=== PATIENT | male | born 1990 | race African-American/Black ===

== ENCOUNTER 2017-11-28 20:24 | Emergency (ER) | payer SELFPAY ==
[2017-11-28 20:25] VITALS: BP 145/77; PULSE 86; RESP 16; TEMP 98.6; O2SAT 98
[2017-11-28] MEDS ORDERED: CEPH-460 PO (21:30)
[2017-11-28] MEDS ORDERED: IBUP1TAB7 PO (21:30)
[2017-11-28] MEDS ORDERED: BACT800T5 PO (21:30)
--- NOTE | 2017-11-28 21:30 | PD ---
HPI Chief Complaint: Skin Problem Time Seen by Provider: 21:17 Travel History International Travel<30 days: No Contact w/Intl Traveler<30days: No Traveled to known affect area: No History of Present Illness HPI 27-year-old male presents to the emergency department for evaluation of a painful lesion on his left buttock. Patient states that he notices about 2 weeks ago. He states is painful to sit on it. Rates the pain a 6 out of 10. He denies any injury. No fever or chills. No drainage. He has no other symptoms to report. PFSH Past Medical History Medical History: Denies Significant Hx Social History Alcohol Use: No Tobacco Use: No Allergies-Medications (Allergen,Severity, Reaction): Coded Allergies: No Known Allergies (Unverified , 11/28/17) Reported Meds & Prescriptions Reported Meds & Active Scripts Active Ibuprofen 800 Mg Tab 800 Mg PO Q8H PRN Keflex (Cephalexin) 500 Mg Cap 500 Mg PO Q6H 5 Days Bactrim DS (Sulfamethoxazole-Trimethoprim) 800-160 Mg Tab 1 Tab PO BID Review of Systems Except as stated in HPI: all other systems reviewed are Neg Physical Exam Narrative GENERAL: Well-nourished, well-developed male patient in no acute distress SKIN: There is an indurated area in the gluteal cleft on the left buttock which measures about 1 cm in diameter. There is no fluctuance, pointing or drainage. There is no significant inflammation. HEAD: Normocephalic. EYES: No scleral icterus. No injection or drainage. NECK: Supple, trachea midline. No JVD or lymphadenopathy. CARDIOVASCULAR: Regular rate and rhythm without murmurs, gallops, or rubs. RESPIRATORY: Breath sounds equal bilaterally. No accessory muscle use. GASTROINTESTINAL: Abdomen soft, non-tender, nondistended. MUSCULOSKELETAL: No cyanosis, or edema. BACK: Nontender without obvious deformity. No CVA tenderness. Data Data Last Documented VS Vital Signs Date Time Temp Pulse Resp B/P (MAP) Pulse Ox O2 Delivery O2 Flow Rate FiO2 11/28/17 21:53 11/28/17 20:25 98.6 86 16 98 Orders Orders Ed Discharge Order (11/28/17 21:28) MDM Medical Decision Making Medical Screen Exam Complete: Yes Emergency Medical Condition: Yes Medical Record Reviewed: Yes Differential Diagnosis Cellulitis versus abscess versus folliculitis versus soft tissue mass Narrative Course 27 old male presents to emergency department for evaluation of a painful lesion on his left buttock. Physical exam is consistent with a cellulitis. There is no fluctuance in this area at this time. I did explain to the patient that this may develop into something that needs to be drained. It is in the soft tissue of the BUTTOCK. I will place the patient on oral antibiotics and have encouraged warm compresses and soaks. He agrees to return immediately with any acute worsening symptoms. Diagnosis Primary Impression: Cellulitis of buttock, left Referrals: Primary Care Physician Patient Instructions: Cellulitis (ED), General Instructions Additional Instructions: Warm soaks and compresses may help the area to resolve It may develop into an abscess that will require drainage Do not squeeze the area or push on it Follow-up with a primary care provider Return immediately with any acute worsening of symptoms Med/Other Pt SpecificInfo: Prescription(s) given Scripts Ibuprofen (Ibuprofen) 800 Mg Tab 800 MG PO Q8H Y for Pain/Inflammation, #30 TAB 0 Refills Prov: Usha Man 11/28/17 Cephalexin (Keflex) 500 Mg Cap 500 MG PO Q6H for Infection for 5 Days, #20 CAP 0 Refills Prov: Usha Man 11/28/17 Sulfamethoxazole-Trimethoprim (Bactrim DS) 800-160 Mg Tab 1 TAB PO BID for Infection, #20 TAB 0 Refills Prov: Usha Man 11/28/17 Disposition: 01 DISCHARGE HOME Condition: Stable Usha Man Nov 28, 2017 21:30
== END 2017-11-28 21:53 | disposition home or self-care (01) ==
LOC: NEPK 20:24
DX: L03.317 Cellulitis of buttock (principal)
CPT/HCPCS: 99284